=== PATIENT | female | born 1960 | race Caucasian/White ===

== ENCOUNTER 2017-07-26 12:57 | Inpatient (IN) | payer OTHER ==
[2017-07-26 14:36] LABS: ADD MAN DIFF? NO
[2017-07-26 14:40] LABS: BASO # 0.1 x10^3/uL (0.0-0.2); BASO % 1 % (0-3); EOS # 0.1 x10^3/uL (0.0-0.7); EOS % 1 % (0-3); HEMATOCRIT 41.3 % (36.0-47.0); HEMOGLOBIN 13.9 g/dL (12.0-15.5); LYMPH # 1.5 x10^3/uL (1.0-4.8); LYMPH % 17 % (24-48); MEAN CORPUSCULAR HEMOGLOBIN 31 pg (25-35); MEAN CORPUSCULAR HGB CONC 34 g/dL (31-37); MEAN CORPUSCULAR VOLUME 92 fL (79-100); MONO # 0.6 x10^3/uL (0.0-1.1); MONO % 7 % (0-9); NEUT # 6.7 x10^3uL (1.8-7.7); NEUT % 75 % (31-73); PLATELET COUNT 202 x10^3/uL (140-400); RED CELL DISTRIBUTION WIDTH 12.8 % (11.5-14.5); WHITE BLOOD COUNT 8.9 x10^3/uL (4.0-11.0)
[2017-07-26 14:51] LABS: INR 0.9 (0.8-1.1); PROTHROMBIN TIME PATIENT 11.9 SEC (11.7-14.0)
[2017-07-26 14:53] LABS: ANION GAP 10 (6-14); BLOOD UREA NITROGEN 8 mg/dL (7-20); BUN/CREATININE RATIO 11 (6-20); CALCIUM 9.9 mg/dL (8.5-10.1); CARBON DIOXIDE 27 mmol/L (21-32); CHLORIDE 102 mmol/L (98-107); CREATININE 0.7 mg/dL (0.6-1.0); GFR 85.6; GLUCOSE 98 mg/dL (70-99); POTASSIUM 3.6 mmol/L (3.5-5.1); SODIUM 139 mmol/L (136-145)
[2017-07-26 15:07] LABS: ALBUMIN 4.1 g/dL (3.4-5.0); ALBUMIN/GLOBULIN RATIO 1.1 (1.0-1.7); ALK PHOS 78 U/L (46-116); ALT (SGPT) 23 U/L (14-59); AST (SGOT) 16 U/L (15-37); TOTAL BILIRUBIN 0.5 mg/dL (0.2-1.0); TOTAL PROTEIN 7.8 g/dL (6.4-8.2)
[2017-07-26 15:46] LABS: FECAL OB PT NEGATIVE (NEG); NEG OBC FOB NEG; POS OBC FOB POS
[2017-07-26] MEDS: IV NORMAL SALINE 1000ML BAG 1,000 ML IV ×2 (17:22)
[2017-07-26] MEDS: MORPHINE SULFATE 2 MG/ML DISP.SYRIN. IV ×4 (17:23→20:02)
[2017-07-26] MEDS ORDERED: BISMUTH SUBSALICYLATE 262 MG/15 ML ORAL.SUSP 236ML BOTTLE. PO ×2 (17:30)
[2017-07-26] MEDS: AZITHROMYCIN 250 MG TABLET. PO ×4 (18:00→20:43)
[2017-07-26] MEDS: FAMOTIDINE 20 MG TABLET. PO ×2 (20:42)
[2017-07-27] MEDS: MORPHINE SULFATE 2 MG/ML DISP.SYRIN. IV ×8 (00:37→13:58)
[2017-07-27 04:50] LABS: ADD MAN DIFF? NO
[2017-07-27 05:00] LABS: BASO % 1 % (0-3); EOS # 0.1 x10^3/uL (0.0-0.7); EOS % 1 % (0-3); HEMATOCRIT 36.5 % (36.0-47.0); HEMOGLOBIN 12.6 g/dL (12.0-15.5); LYMPH # 1.5 x10^3/uL (1.0-4.8); LYMPH % 22 % (24-48); MEAN CORPUSCULAR HEMOGLOBIN 32 pg (25-35); MEAN CORPUSCULAR HGB CONC 35 g/dL (31-37); MEAN CORPUSCULAR VOLUME 92 fL (79-100); MONO # 0.6 x10^3/uL (0.0-1.1); MONO % 8 % (0-9); NEUT # 4.8 x10^3uL (1.8-7.7); NEUT % 68 % (31-73); PLATELET COUNT 182 x10^3/uL (140-400); RED BLOOD COUNT 3.97 x10^6/uL (3.50-5.40); RED CELL DISTRIBUTION WIDTH 13.2 % (11.5-14.5)
[2017-07-27 05:27] LABS: ALBUMIN 3.2 g/dL (3.4-5.0); ALK PHOS 69 U/L (46-116); ALT (SGPT) 17 U/L (14-59); ANION GAP 9 (6-14); AST (SGOT) 13 U/L (15-37); BLOOD UREA NITROGEN 7 mg/dL (7-20); BUN/CREATININE RATIO 12 (6-20); CALCIUM 8.4 mg/dL (8.5-10.1); CARBON DIOXIDE 25 mmol/L (21-32); CHLORIDE 106 mmol/L (98-107); CREATININE 0.6 mg/dL (0.6-1.0); GFR 102.3; GLUCOSE 97 mg/dL (70-99); POTASSIUM 3.5 mmol/L (3.5-5.1); SODIUM 140 mmol/L (136-145); TOTAL BILIRUBIN 0.6 mg/dL (0.2-1.0); TOTAL PROTEIN 6.3 g/dL (6.4-8.2)
[2017-07-27] MEDS: FAMOTIDINE 20 MG TABLET. PO ×2 (08:49)
[2017-07-27] MEDS: AZITHROMYCIN 250 MG TABLET. PO ×2 (08:49)
[2017-07-27 09:10] LABS: INFLUENZA A PATIENT NEGATIVE (NEGATIVE); INFLUENZA B PATIENT NEGATIVE (NEGATIVE); OBC FLU VALID
[2017-07-27] MEDS: PANTOPRAZOLE 40 MG TABLET.DR. PO ×2 (10:32)
[2017-07-27] MEDS: SALIVA STIMULANT AGENT 44ML SPRAY BOTTLE. PO ×2 (10:32)
[2017-07-27] MEDS: CIPROFLOXACIN 200MG PREMIX 100 ML IV ×4 (12:14→21:05)
[2017-07-27] MEDS: ONDANSETRON PF 4 MG/2 ML VIAL. IV ×2 (15:15)
[2017-07-27] MEDS: ACETAMINOPHEN 325 MG TABLET. PO ×2 (21:05)
[2017-07-27] MEDS: LACTOBACILLUS RHAMNOSUS GG 1 CAPSULE. PO ×2 (21:06)
[2017-07-27] MEDS: IV NORMAL SALINE 500ML BAG 500 ML IV ×2 (23:52)
[2017-07-28] MEDS: IV NORMAL SALINE 1000ML BAG 1,000 ML IV ×6 (00:13→19:15)
[2017-07-28] MEDS: ACETAMINOPHEN 325 MG TABLET. PO ×4 (08:34→21:25)
[2017-07-28] MEDS: PANTOPRAZOLE 40 MG TABLET.DR. PO ×2 (08:34)
[2017-07-28] MEDS: LACTOBACILLUS RHAMNOSUS GG 1 CAPSULE. PO ×4 (08:34→21:25)
[2017-07-28] MEDS: AZITHROMYCIN 250 MG TABLET. PO ×2 (08:34)
[2017-07-28] MEDS: CIPROFLOXACIN 200MG PREMIX 100 ML IV ×2 (08:43)
[2017-07-28 10:24] LABS: ADD MAN DIFF? NO
[2017-07-28 10:37] LABS: BASO % 1 % (0-3); EOS # 0.1 x10^3/uL (0.0-0.7); EOS % 2 % (0-3); HEMATOCRIT 34.7 % (36.0-47.0); HEMOGLOBIN 11.7 g/dL (12.0-15.5); LYMPH # 1.1 x10^3/uL (1.0-4.8); LYMPH % 20 % (24-48); MEAN CORPUSCULAR HEMOGLOBIN 31 pg (25-35); MEAN CORPUSCULAR HGB CONC 34 g/dL (31-37); MEAN CORPUSCULAR VOLUME 93 fL (79-100); MONO # 0.4 x10^3/uL (0.0-1.1); MONO % 7 % (0-9); NEUT % 71 % (31-73); PLATELET COUNT 167 x10^3/uL (140-400); RED BLOOD COUNT 3.73 x10^6/uL (3.50-5.40); RED CELL DISTRIBUTION WIDTH 12.8 % (11.5-14.5); WHITE BLOOD COUNT 5.7 x10^3/uL (4.0-11.0)
[2017-07-28 11:16] LABS: ANION GAP 9 (6-14); BLOOD UREA NITROGEN 6 mg/dL (7-20); CALCIUM 8.7 mg/dL (8.5-10.1); CARBON DIOXIDE 27 mmol/L (21-32); CHLORIDE 109 mmol/L (98-107); CREATININE 0.7 mg/dL (0.6-1.0); GFR 85.6; GLUCOSE 96 mg/dL (70-99); POTASSIUM 3.7 mmol/L (3.5-5.1); SODIUM 145 mmol/L (136-145)
[2017-07-28 11:18] LABS: LACTIC ACID 0.6 mmol/L (0.4-2.0)
[2017-07-28 12:12] LABS: SEDIMENTATION RATE 22 (0-25)
[2017-07-28 14:58] LABS: C DIFF BY PCR Positive (Negative)
[2017-07-28] MEDS: metroNIDAZOLE 500 MG TABLET PO ×4 (16:11→21:25)
[2017-07-29] MEDS: metroNIDAZOLE 500 MG TABLET PO ×6 (06:15→23:12)
[2017-07-29] MEDS: LACTOBACILLUS RHAMNOSUS GG 1 CAPSULE. PO ×4 (09:50→20:51)
[2017-07-29] MEDS: PANTOPRAZOLE 40 MG TABLET.DR. PO ×2 (09:50)
[2017-07-29] MEDS: ACETAMINOPHEN 325 MG TABLET. PO ×2 (20:51)
[2017-07-30] MEDS: metroNIDAZOLE 500 MG TABLET PO ×4 (06:00→12:57)
[2017-07-30] MEDS: PANTOPRAZOLE 40 MG TABLET.DR. PO ×2 (06:00)
[2017-07-30] MEDS: LACTOBACILLUS RHAMNOSUS GG 1 CAPSULE. PO ×2 (08:40)
== END 2017-07-30 13:05 | disposition home or self-care (01) | DRG 372 ==
LOC: ER 12:57 → 4 NORTH 16:33
DX: A04.72 Enterocolitis due to Clostridium difficile, not specified as recurrent (principal); K57.32 Diverticulitis of large intestine without perforation or abscess without bleeding; K55.9 Vascular disorder of intestine, unspecified; K92.1 Melena; K21.9 Gastro-esophageal reflux disease without esophagitis; F32.9 Major depressive disorder, single episode, unspecified; F41.9 Anxiety disorder, unspecified; H66.90 Otitis media, unspecified, unspecified ear; R09.02 Hypoxemia; R32 Unspecified urinary incontinence; Z79.899 Other long term (current) drug therapy; Z87.11 Personal history of peptic ulcer disease
CPT/HCPCS: 36415; 71046; 74176; 80048; 80053; 82274; 83605; 85025; 85610; 85651; 86140; 86850; 86900; 86901; 87045; 87324; 87804; 87804-59; 93005; 93306; 93880; 96360; 99285; 99285-25; J0744; J2270; J2405; J3490; J7030; J7040; Q0144

== ENCOUNTER 2021-03-06 12:20 | Emergency (ER) | payer OTHER ==
[~2021-03-06] VITALS: Ht 162.6 cm; Wt 70.0 kg
[~2021-03-06 12:20] MED LIST: METR500T PO; SERT100T PO
--- NOTE | 2021-03-06 12:31 | PHYS DOC ---
Past Medical History Past Medical History: Diverticulitis, Other Additional Past Medical Histor: ulcers Past Surgical History: Cholecystectomy, Other Additional Past Surgical Histo: hernia Smoking Status: Current Every Day Smoker Alcohol Use: None Drug Use: None General Adult EDM: Chief Complaint: ABDOMINAL PAIN HPI: HPI: Patient is a 60 year old female who presents with 3 day history of lower abdominal pain worse to LLQ. Reports some pain also in bilateral back. Reports some nausea without vomiting or diarrhea. Reports pmh of diverticulitis. Reports she was seen by her PCP yesterday and started on antibiotics for diverticulitis. Patient was instructed to present to ED for any worsening of symptoms. Denies known sick contacts. Denies known exposure to COVID-19. Patient reports she was also tested for COVID-19 by PCP yesterday. Reports results were "negative". Review of Systems: Review of Systems: Constitutional: Denies fever or chills Eyes: Denies redness or eye pain HENT: Denies nasal congestion or sore throat Respiratory: Denies cough or shortness of breath Cardiovascular: Denies chest pain or palpitations GI: Reports abdominal pain and nausea; denies vomiting : Denies dysuria or hematuria Musculoskeletal: Reports back pain; denies joint pain Integument: Denies rash or skin lesions Neurologic: Denies headache, focal weakness or sensory changes Complete systems were reviewed and found to be within normal limits, except as documented in this note. Heart Score: C/O Chest Pain: N/A Allergies: Allergies: Allergies Coded Allergies Type Severity Reaction Last Updated Verified No Known Drug Allergies 07/26/17 No Physical Exam: PE: Constitutional: Well developed, well nourished, no acute distress, non-toxic appearance HENT: Normocephalic, atraumatic Eyes: Conjunctiva normal, no discharge Neck: Normal range of motion, no tenderness, supple Lungs & Thorax: No respiratory distress, equal chest rise and fall Abdomen: Soft, lower quadrant tenderness L>R, mild distention, no guarding Skin: Warm, dry, no erythema, no rash Back: No tenderness, left CVA tenderness Extremities: No tenderness, ROM intact, no edema Neurologic: Alert and oriented X 3, normal motor function, normal sensory function, no focal deficits noted Psychologic: Affect normal, judgment normal EKG: EKG: @1248 NSR at 96bpm, NO ST elevation, QRS 70ms, QT/QTc 324/415ms Radiology/Procedures: Radiology/Procedures: [] Impression: PROCEDURE: CT ABDOMEN PELVIS WO CONTRAST INDICATION: Reason: left flank pain eval for kidney stone / Spl. Instructions: / History: COMPARISON: June 2017 TECHNIQUE: Axial CT images were obtained through the abdomen and pelvis without intravenous contrast. One or more of the following individualized dose reduction techniques were utilized for this examination: 1. Automated exposure control; 2. Adjustment of the mA and/or kV according to patient size; 3. Use of iterative reconstruction technique. FINDINGS: There are some cystic changes at the lung bases. Mild linear opacity at the right lung base which could be from atelectasis or scarring. Coronary artery calcific atherosclerosis. Vascular: Scattered calcific atherosclerosis. Hepatobiliary: Postcholecystectomy changes. No significant intrahepatic bile duct dilation. Pancreas: No peripancreatic edema. Spleen: Spleen unremarkable. Renal: Prominence of the right extrarenal pelvis. No radiopaque obstructive ureter stone. Bladder: No definite inflammatory changes to the bladder. Gastrointestinal: Wall thickening of the sigmoid colon with adjacent edema to the fat. Appendix is not well seen. Degenerative changes the spine. Multilevel central canal and neural foraminal stenosis. Small fat-containing umbilical hernia. IMPRESSION: * Wall thickening of the sigmoid colon with adjacent edema to the fat. This could be seen with diverticulitis. If the patient has not had a recent colonoscopy either follow-up CT or colonoscopy could be obtained to ensure this appropriately resolves to exclude less common neoplastic causes. * Prominence of right extrarenal pelvis without radiopaque obstructive ureter stone Electronically signed by: Adair Rod MD (03/06/2021 1:21 PM) [id number] Course & Med Decision Making: Course & Med Decision Making Pertinent Labs and Imaging studies reviewed. (See chart for details) Patient presents with lower abdominal and flank pain which is worse on left x 3 days. hx of diverticulitis for which patient was just started on empiric antibiotics. Pain/nausea addressed. IVF hydration given. Labs obtained and posted to chart. CT abd/pelvis with findings consistent for acute diverticulitis. Patient to take previously prescribed antibiotics. RX for pain and nausea provided. Patient stable for discharge home with outpatient follow-up with PCP/GI. GI referral provided. Discussed findings and plan with patient, who acknowledges understanding and agreement. Amos Disclaimer: Amos Disclaimer: This electronic medical record was generated, in whole or in part, using a voice recognition dictation system. Departure Departure Impression: Primary Impression: Diverticulitis Disposition: HOME / SELF CARE / HOMELESS Condition: STABLE Referrals: OMKAR CHAMBERLAIN MD (PCP) RUBI SCHUMACHER MD Patient Instructions: Diverticulitis, [id number] Additional Instructions: Take previously prescribed antibiotics as directed to completion. Scripts Hydrocodone Bit/Acetaminophen (HYDROCODONE-APAP 5-325 ) 1 Tab Tablet 0.5-1 TAB PO PRN Q6HRS PRN for PAIN, #10 TAB 0 Refills Prov: MISHEL HALL DO 03/06/21 Ondansetron (ONDANSETRON ODT) 4 Mg Tab.rapdis 1 TAB PO PRN Q6-8HRS PRN for NAUSEA, #16 TAB Prov: MISHEL HALL DO 03/06/21 MISHEL HALL DO Mar 06, 2021 12:31
[2021-03-06] MEDS ORDERED: KETOROLAC 15 MG/ML VIAL. IVP ONE (12:45)
[2021-03-06] MEDS ORDERED: IV NORMAL SALINE 1000ML BAG 1,000 ML IV ONE (12:45)
[2021-03-06] MEDS ORDERED: METOCLOPRAMIDE HCL 10 MG/2 ML VIAL. IVP ONE (12:45)
[2021-03-06 12:58] LABS: BILIRUBIN,URINE NEGATIVE (NEG); CLARITY,URINE CLEAR; COLOR,URINE YELLOW; NITRITE,URINE NEGATIVE (NEG); PH,URINE 6.5 (<5.0-8.0); PROTEIN,URINE NEGATIVE (NEG-TRACE)
[2021-03-06 13:05] LABS: BACTERIA,URINE 0 /HPF (0-FEW); RBC,URINE 0 /HPF (0-2); WBC,URINE 0 /HPF (0-4)
[2021-03-06 13:12] LABS: BASO # 0.1 x10^3/uL (0.0-0.2); BASO % 1 % (0-3); EOS # 0.1 x10^3/uL (0.0-0.7); EOS % 2 % (0-3); HEMATOCRIT 39.1 % (36.0-47.0); HEMOGLOBIN 13.6 g/dL (12.0-15.5); LYMPH # 1.3 x10^3/uL (1.0-4.8); LYMPH % 19 % (24-48); MEAN CORPUSCULAR HEMOGLOBIN 31 pg (25-35); MEAN CORPUSCULAR HGB CONC 35 g/dL (31-37); MEAN CORPUSCULAR VOLUME 90 fL (79-100); MONO # 0.5 x10^3/uL (0.0-1.1); MONO % 7 % (0-9); NEUT # 4.8 x10^3/uL (1.8-7.7); NEUT % 72 % (31-73); PLATELET COUNT 192 x10^3/uL (140-400); RED BLOOD COUNT 4.35 x10^6/uL (3.50-5.40); RED CELL DISTRIBUTION WIDTH 12.7 % (11.5-14.5); WHITE BLOOD COUNT 6.8 x10^3/uL (4.0-11.0)
--- NOTE | 2021-03-06 13:23 | RAD ---
INDICATION: Reason: left flank pain eval for kidney stone / Spl. Instructions: / History: COMPARISON: June 2017 TECHNIQUE: Axial CT images were obtained through the abdomen and pelvis without intravenous contrast. One or more of the following individualized dose reduction techniques were utilized for this examinat ion: 1. Automated exposure control; 2. Adjustment of the mA and/or kV according to patient size; 3 . Use of iterative reconstruction technique. FINDINGS: There are some cystic changes at the lung bases. Mild linear opacity at the right lung base which cou ld be from atelectasis or scarring. Coronary artery calcific atherosclerosis. Vascular: Scattered calcific atherosclerosis. Hepatobiliary: Postcholecystectomy changes. No significant intrahepatic bile duct dilation. Pancreas: No peripancreatic edema. Spleen: Spleen unremarkable. Renal: Prominence of the right extrarenal pelvis. No radiopaque obstructive ureter stone. Bladder: No definite inflammatory changes to the bladder. Gastrointestinal: Wall thickening of the sigmoid colon with adjacent edema to the fat. Appendix is no t well seen. Degenerative changes the spine. Multilevel central canal and neural foraminal stenosis. Small fat-containing umbilical hernia. IMPRESSION: * Wall thickening of the sigmoid colon with adjacent edema to the fat. This could be seen with dive rticulitis. If the patient has not had a recent colonoscopy either follow-up CT or colonoscopy could be obtained to ensure this appropriately resolves to exclude less common neoplastic causes. * Prominence of right extrarenal pelvis without radiopaque obstructive ureter stone Electronically signed by: Adair Rod MD (03/06/2021 1:21 PM) [id number]
[2021-03-06 13:37] LABS: CALCIUM 9.3 mg/dL (8.5-10.1); CREATININE 0.8 mg/dL (0.6-1.0); GFR 72.7
[2021-03-06 13:43] LABS: ALBUMIN 3.4 g/dL (3.4-5.0); ALBUMIN/GLOBULIN RATIO 0.9 (1.0-1.7); MAGNESIUM 1.9 mg/dL (1.8-2.4); TOTAL BILIRUBIN 0.6 mg/dL (0.2-1.0)
[2021-03-06 13:55] LABS: CREATINE KINASE 58 U/L (26-192)
[2021-03-06] MEDS ORDERED: HYDR-2761 PO (14:31)
[2021-03-06] MEDS ORDERED: ONDA4TAB12 PO (14:31)
[2021-03-06 15:16] VITALS: BP 106/55
== END 2021-03-06 15:17 | disposition home or self-care (01) ==
LOC: ER 12:20
DX: K57.92 Diverticulitis of intestine, part unspecified, without perforation or abscess without bleeding (principal); Z90.49 Acquired absence of other specified parts of digestive tract
CPT/HCPCS: 36415; 74176; 80053; 81001; 82553; 83605; 83690; 83735; 84484; 85025; 93005; 96361; 96374; 96375; 99285; J1885; J2765; J7030